=== PATIENT | male | born 1960 | race African-American/Black ===

== ENCOUNTER 2022-08-09 17:10 | Observation (INO) | payer BC, SELFPAY ==
[2022-08-09] VITALS (25 sets, daily range): BP systolic 146–169; BP diastolic 78–107; PULSE 69–87; RESP 14–29; TEMP 36.8; O2SAT 94–100; BMI 32.2
[2022-08-09] MEDS: EPINEPHrine HCL INJ 1 MG/ML AMPUL (17:20)
--- NOTE | 2022-08-09 17:25 | ED.ALLEREA ---
HPI - Allergic Reaction General Chief complaint: Allergic Reaction <Rosalva Crowell PA-C - Last Filed: 08/10/22 03:55> Stated complaint: allergic reaction <oRsalva Crowell PA-C - Last Filed: 08/10/22 03:55> Time Seen by Provider: 08/09/22 17:22 <Rosalva Crowell PA-C - Last Filed: 08/10/22 03:55> History of Present Illness HPI narrative: 62-year-old male with a history of diabetes, hypertension, kidney disease and prostate cancer reports for evaluation of an allergic reaction that started approximately 3 and half hours ago while he was eating a steak and vegetable kebab and fries at [facility]. Patient reported his eyes began to swell fairly quickly while he was eating, he took 1 Benadryl with improvement. States later he began to feel the swelling was worsening again took a second Benadryl without relief, therefore come to the ED. He is reporting swelling to his eyes and back of his throat. He denies difficulty breathing, wheezing, nausea or vomiting, abdominal pain, hives, pruritus. His only known allergy is to Percocet. He has never had an allergic reaction like this before. <Rosalva Crowell PA-C - Last Filed: 08/10/22 03:55> Related Data Home medications: Home Medications Medication Instructions Recorded Confirmed aspirin 81 mg tablet,delayed 81 mg PO DAILY 08/09/22 08/09/22 release coQ10 (ubiquinol) 100 mg capsule 100 mg PO DAILY 08/09/22 08/09/22 coffee extract 100 mg-phosphatidyl 1 cap PO DAILY 08/09/22 08/09/22 serine 100 mg capsule (Neuriva Original) gabapentin 100 mg capsule 100 mg PO HS 08/09/22 08/09/22 green tea leaf extract 1 cap PO DAILY 08/09/22 08/09/22 losartan 100 mg tablet 100 mg PO DAILY 08/09/22 08/09/22 metformin 1,000 mg tablet 1,000 mg PO BID 08/09/22 08/09/22 oxybutynin chloride 10 mg 10 mg PO DAILY 08/09/22 08/09/22 tablet,extended release 24 hr pioglitazone 15 mg tablet 15 mg PO DAILY 08/09/22 08/09/22 pravastatin 40 mg tablet 40 mg PO HS 08/09/22 08/09/22 tadalafil 5 mg tablet 5 mg PO DAILY 08/09/22 08/09/22 <Rosalva Crowell PA-C - Last Filed: 08/10/22 03:55> Allergies/adverse reactions: Allergies Allergy/AdvReac Type Severity Reaction Status Date / Time acetaminophen [From Percocet] Allergy Unknown Verified 08/09/22 18:42 oxycodone [From Percocet] Allergy Unknown Verified 08/09/22 18:42 <Rosalva Crowell PA-C - Last Filed: 08/10/22 03:55> Review of Systems Review of Systems: CONSTITUTIONAL: Denies fever, chills EYES: Denies visual changes, redness, or discharge. ENT: Denies rhinorrhea, congestion, sore throat, or otalgia. CARDIOVASCULAR: Denies chest pain, palpitations, or edema. RESPIRATORY: Denies cough or dyspnea. GASTROINTESTINAL: Denies abdominal pain, nausea, vomiting, or diarrhea. GENITOURINARY: Denies dysuria or hematuria. SKIN: See HPI MUSCULOSKELETAL: Denies back pain, joint pain, or myalgia. NEUROLOGIC: Denies headache, numbness, dizziness, or weakness. PSYCHIATRIC: Denies anxiety or depression. <Rosalva Crowell PA-C - Last Filed: 08/10/22 03:55> REPLACED BY [facility] Past Medical History Medical History: Medical History (Updated 08/09/22 @ 22:53 by Jagruti Haynes DO) Chronic neck pain Essential hypertension Hyperlipidemia Iron deficiency anemia History of what sounds like hemochromatosis but developed iron deficiency anemia after her gastric bypass Normal capsule endoscopy of gastrointestinal tract Prostate cancer Type 2 diabetes mellitus <Rosalva Crowell PA-C - Last Filed: 08/10/22 03:55> Surgical History Surgical History: Surgical History (Updated 08/09/22 @ 22:56 by Jagruti Haynes DO) History of prostatectomy (~10/2021) History of repair of left rotator cuff (~2008) History of Eneida-en-Y gastric bypass (~2009) Hx laparoscopic cholecystectomy (~12/2021) Normal colonoscopy Normal esophagogastroduodenoscopy (EGD) Status post cervical spinal fusion Status post open reduction with i
[2022-08-09] MEDS: SODIUM CHLORIDE 0.9% IV 1,000 ML 999 ML IV CONT (17:30)
[2022-08-09] MEDS: methylPREDNISolone SOD SUCC 125 MG VIAL IV PUSH (17:30)
[2022-08-09] MEDS: diphenhydrAMINE HCl INJ 50 MG/ML VIAL 25 MG IV PUSH ×3 (17:30→23:24)
[2022-08-09] MEDS: FAMOTIDINE 20 MG/2 ML VIAL IV PUSH (17:31)
[2022-08-09 17:52] LABS: Basophils Percent Auto 0.3 % (0.2-1.2); Eosinophils Absolute Auto 0.1 K/mm3 (0-0.3); Hematocrit 47.7 % (42.0-52.0); Hemoglobin 15.6 g/dL (14.0-18.0); Immature Granulocyte Absolute 0.02 K/mm3 (0.00-0.031); Immature Granulocyte Percent A 0.3 % (0-0.5); Lymphocytes Absolute Auto 1.44 K/mm3 (0.9-3.2); Lymphocytes Percent Auto 20.7 % (18.3-44.2); Mean Corpuscular HGB Conc 32.7 g/dl (32-36); Mean Corpuscular Hemoglobin 30.2 pg (26-34); Mean Corpuscular Volume 92.3 fl (80-100); Mean Platelet Volume 10.9 fl (7.4-10.4); Monocytes Absolute Auto 0.5 K/mm3 (0.1-0.6); Monocytes Percent Auto 7.1 % (2.6-8.5); Neutrophils Absolute Auto 4.9 K/mm3 (1.3-6.7); Neutrophils Percent Auto 70.6 % (45.5-73.1); Platelet Count Result 176 k/mm3 (150-375); Red Blood Count 5.17 M/mm3 (4.6-6.20); Red Cell Distribution Width 14.1 % (11.5-14.5)
[2022-08-09 18:02] LABS: Alanine Aminotransferase 21 U/L (6-50); Albumin Level 4.2 g/dL (3.5-5.1); Alkaline Phosphatase 54 U/L (38-126); Anion Gap 8 mmol/L (8-16); Aspartate Amino Transferase 32 U/L (17-59); Bilirubin,Total 0.6 mg/dL (0.2-1.3); Blood Urea Nitrogen 16 mg/dL (9-20); Calcium 8.6 mg/dL (8.4-10.2); Carbon Dioxide 25 mmol/L (22-30); Chloride 104 mmol/L (98-107); Estimated CRCL calculation 87 ml/min; Estimated Glomerular Filt Rate > 60; Glucose 113 mg/dL (65-110); Potassium 4.2 mmol/L (3.4-5.0); Sodium 137 mmol/L (137-145)
[2022-08-09 19:05] LABS: Appearance Urine Clear (Clear); Bilirubin Urine Negative (Negative); Blood Urine Negative (Negative); Color Urine Yellow (Yellow); Glucose Urine UA Negative (Negative); Ketones Urine Negative (Negative); Leukocyte Esterase Ur Negative LEU/UL (Negative); Nitrate Urine Negative (Negative); Protein Urine Negative (Negative); Specific Grav Ur 1.005 (1.001-1.035); Urobilinogen Urine 0.2 mg/dL (<2.0)
[2022-08-09 19:07] LABS: Add Urine Microscopic? NO
[2022-08-09] MEDS: EPINEPHrine HCL INJ 1 MG/ML AMPUL 0.3 MG IM (19:53)
--- NOTE | 2022-08-09 19:58 | PM.IMHP ---
H&P: HPI History of Present Illness Date/Time: 08/09/22 19:58 Chief Complaint: eye swelling and throat swelling Narrative: 62-year-old male with a past medical history of essential hypertension and type 2 diabetes mellitus who presented to the ER with eyelid and throat swelling after eating. The patient reports that he is in town visiting family. He is from [place]. They went out to dinner at [facility] any had a salad and ranch dressing. He then started eating steak with some steak fries. He has had this meal previously at other branches of this restaurant chain without having an allergic reaction. He reports that he was several bites in to his steak and fries when he began having itching of his eyes and a sensation of fullness in the back of his throat. He reported that his throat was also itching. He noticed that it was becoming difficult for him to swallow. His sister at some Benadryl at the restaurant and gave him a a tablet. He thought initially that his symptoms got a little bit better. He quit eating his meal and returned to the hotel. However when he needed to take a 2nd dose of Benadryl proximally 2 hours later he decided to go to stay with family so that they could monitor him. When he got to the house and tried to lay down he noticed symptoms of airway obstruction. Any time he would lay down he felt as if he could not breathe. He mentions that he recently had a sleep study about 6 weeks ago but has not received the results. He reports that his physician is suspicious that he has obstructive sleep apnea. He reports that since his symptoms had not improved with the 2nd dose of Benadryl knee was having trouble lying down to sleep he decided come into the ER for evaluation. In the ER he received 125 mg of IV Solu-Medrol, 20 mg of IV Pepcid, and 25 mg of IV Benadryl. ER staff reported that the patient's symptoms had not really improved with this any still had uvula edema on exam. The patient reports that his symptoms subjectively have improved any does not think his eyes are swollen as they were previously. He is on losartan for essential hypertension and for kidney protection. 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 He was treated for 1 year with cyclosporin and his proteinuria resolved. He denies any recent changes in his medications. He states he had prostate surgery in October 2021 and was started on Cialis and oxybutynin at that time. He has not been on any recent antibiotics. He does not hopkins. He does have a cat and dog at home but they are on flea and tick prevention. He has not had any known tick exposures. The patient's blood pressures have been elevated since admission with systolic blood pressures in the 160s. The patient reports that his blood pressures at home are usually in the 130s. He checks his blood pressures weekly. He is on losartan for his blood pressures and has been for several years. He had been switched to losartan for kidney protective affect. He was previously on Norvasc. Review of Systems Review of Systems: 12 systems were reviewed with pertinent positives and negatives per HPI. Except as documented in the HPI, all other systems were reviewed and are negative. He reports that he used to give blood frequently as his hemoglobin was always elevated. However couple of years ago he developed iron deficiency anemia and underwent pill endoscopy, EGD and colonoscopy. It was determined the and iron deficiency anemia due to nutritional deficiencies following his weight loss surgery. He is on multivitamin and B12 supplements daily. [facility] Past Medical History Medical History (Updated 08/09/22 @ 22:53 by Jagruti Haynes DO) Chronic neck pain Essential hypertension Hyperlipidemia Iron deficiency anemia History of what sounds like hemochromatosis but developed iron deficiency anemia after
[2022-08-09 20:16] LABS: Glucose Point of Care 188 mg/dl (65-105)
--- NOTE | 2022-08-09 23:16 | PHAR ---
verified home med: *USE FROM HOME* Tadalafil 5 mg tablet - take 1 tablet by mouth daily
[2022-08-09] MEDS: GABAPENTIN 100 MG CAPSULE PO (23:22)
[2022-08-09] MEDS: methylPREDNISolone SOD SUCC 40 MG VIAL 80 MG IV PUSH (23:24)
[2022-08-10] VITALS (10 sets, daily range): BP systolic 119–161; BP diastolic 70–97; PULSE 49–85; RESP 12–18; TEMP 36.4–36.9; O2SAT 95–99
--- NOTE | 2022-08-10 00:08 | ADMGEN ---
This patient, Lucho Acharya, was admitted to Intensive Care Unit-1 at 2102 on 08/09/22. Patient/family oriented to hospital policies and general routines including ID bracelet, bed and alarms, visiting hours, pain management, procedures, bathroom and other care routines, personal items, smoking policy, room service/diet, and visiting hours. Information on how to activate the Rapid Response Team has been discussed. Patient/Family are encouraged to report perceived risks to care and to ask questions if they do not understand what they are told or what they should do.
[2022-08-10] MEDS: diphenhydrAMINE HCl INJ 50 MG/ML VIAL 25 MG IV PUSH ×4 (06:22→23:44)
[2022-08-10] MEDS: methylPREDNISolone SOD SUCC 40 MG VIAL 80 MG IV PUSH ×4 (06:22→23:43)
[2022-08-10 07:55] LABS: Glucose Point of Care 213 mg/dl (65-105)
--- NOTE | 2022-08-10 08:27 | WPDCNINT ---
Assessment and Plan Assessment and plan (1) Angioedema: Qualifiers: Encounter type: initial encounter Qualified Code(s): T78.3XXA - Angioneurotic edema, initial encounter Code(s): T78.3XXA - Angioneurotic edema, initial encounter Status: Acute Assessment and Plan: Patient presented the ED after having been at [facility], he has had similar food and other out lids without any allergic reaction. He had salad with ranch dressing and steak with some steak [place] and then developed fullness in his throat along with itching, swelling of his eyes. He did take some Benadryl at the restaurant. Went home and felt he could not breathe and so he presented the ED at [facility] where he was given epinephrine, Solu-Medrol, Pepcid, Benadryl -continue Solu-Medrol, Pepcid, Benadryl -patient denies any difficulty swallowing, difficulty breathing, he is not drooling -continue to monitor closely (2) Essential hypertension: Code(s): I10 - Essential (primary) hypertension Status: Acute Assessment and Plan: Patient on losartan at home, this could also be a factor playing in his angioedema which I explained to him in detail -place patient on amlodipine with blood pressure control -he is on hydralazine p.r.n. (3) Type 2 diabetes mellitus: Code(s): E11.9 - Type 2 diabetes mellitus without complications Status: Acute Assessment and Plan: Continue metformin and Actos -Accu-Cheks and sliding scale insulin Plan DVT prophylaxis: Lovenox Stress ulcer prophylaxis: Pepcid Nutrition: Full liquid diet Code Status: Full Critical Care Time Spent: 47 minutes Due to a high probability of clinically significant, life threatening deterioration, the patient required my highest level of preparedness to intervene emergently and I personally spent this critical care time directly and personally managing the patient. This critical care time included obtaining a history; examining the patient; pulse oximetry; ordering and review of studies; arranging urgent treatment with development of a management plan; evaluation of patient's response to treatment; frequent reassessment; and discussions with other providers. It was exclusive of separately billable procedures and treating other patients and teaching time. Please see Assessment and Plan section and the rest of the note for further information on patient assessment and treatment This dictation may have been done utilizing a voice recognition system. Attempts have been made to correct errors. However, there may be uncorrected grammatical, spelling, and recognitions errors present. Packaging Manager Consult Note Consult date: 08/10/22 Reason for consult: Angioedema HPI: Lucho Acharya is a 62 year old male continues to type 2 diabetes, essential hypertension, hyperlipidemia, deficiency anemia, history of prostate cancer presented the ED with swelling of his eyelids in throat after eating at [employer] we insulin silent in REM dressing along with some steak AST [place] urine immediately noted managing to his eyes and sensation of fullness in the back of his throat. He has had similar meals at [employer] outlets without any issues in the past. He also noted that he was having difficulty swallowing, he took Benadryl x2 at the restaurant. Patient then went home and felt that he was having trouble breathing so he came to the ER where he was given epinephrine, Solu-Medrol, Pepcid, Benadryl. Patient had swelling of his eyes and uvula was admitted to the ICU for observation Patient seen and examined the ICU, is awake, alert, oriented, states he feels better this morning, denies any shortness of breath, difficulty swallowing or drooling. He states he feels that the swelling of his eyes is decreased. Pleasant patient, was wondering about his losartan was blood pressures. I told him that we will given something else for his blood pressures as losartan also c
[2022-08-10] MEDS: INSULIN ASPART (*BKC) 100 UNITS/ML SUB-Q ×2 (08:41→13:04)
[2022-08-10] MEDS: ENOXAPARIN 40 MG/0.4 ML SYRINGE SUB-Q (08:42)
[2022-08-10] MEDS: ASPIRIN 81 MG ENTERIC TABLET PO (08:42)
[2022-08-10] MEDS: oxyBUTYnin CHLORIDE XL 5 MG TAB.ER.24 10 MG PO (08:42)
[2022-08-10] MEDS: PIOGLITAZONE HCL 15 MG TAB PO (08:43)
[2022-08-10] MEDS: FAMOTIDINE 20 MG/2 ML VIAL IV PUSH ×2 (08:43→19:58)
[2022-08-10] MEDS: metFORMIN HCL 500 MG TABLET 1000 MG PO ×2 (08:43→18:00)
[2022-08-10] MEDS: amLODIPine BESYLATE 5 MG TABLET 10 MG PO (10:20)
--- NOTE | 2022-08-10 10:24 | P.PNIM_ITS ---
Progress Note: A&P Assessment and Plan (1) Angioedema: Qualifiers: Encounter type: initial encounter Qualified Code(s): T78.3XXA - Angioneurotic edema, initial encounter Code(s): T78.3XXA - Angioneurotic edema, initial encounter Status: Acute Plan # angioedema -unclear the trigger for the patient's allergic reaction -was concern for losartan allergy, stop for now -continue Solu-Medrol, Benadryl, Pepcid -advancing diet as tolerated # chronic conditions -essential hypertension: Stop losartan, started amlodipine, systolic blood pressure up to 160s, continue monitoring blood pressure -type 2 diabetes: Sliding scale insulin, Accu-Cheks a.c. HS, metformin, Actos -peripheral neuropathy: Gabapentin -hyperlipidemia: Atorvastatin -tadalafil Diet: Tolerate clear liquids, advanced to diabetic diet DVT prophylaxis: Ambulatory Code status: Full code Disposition: Likely home tomorrow, transfer out of ICU Subjective Date/time seen: 08/10/22 10:24 Interval history: Patient seen and examined. He is doing well with no new complaints. Patient's swelling has significantly decreased compared to yesterday. Continue Solu- Medrol, Pepcid, Benadryl. Patient's vitals are stable. He has tolerated clear liquid diet, will advance to regular diet. As we have stopped losartan, started amlodipine with systolic blood pressure up to 160s. Will transition out of ICU and monitor on medical floor. He denies dyspnea, fever, chills, nausea vomiting or diarrhea. Review of Systems Review of Systems: 10 point ROS complete, negative other th an what is specified in HPI. Exam Narrative: - GENERAL: Pleasant male No acute distr ess. Well-nourished. - EYES: EOMI. Anicteric. - HENT: Moist mucous membranes. No faci al swelling seen compared to picture from yesterday - LUNGS: Clear to auscultation bilateral ly, no wheezing, rhonchi, or rales. - CARDIOVASCULAR: Regular rate and rhyth m. No murmur. No JVD. - ABDOMEN: Soft, non-tender and non-dist ended. No palpable masses. - EXTREMITIES: No edema. Peripheral puls es 2+. Non-tender. - NEUROLOGIC: No focal neurological defi cits. CN II-XII grossly intact. - PSYCHIATRIC: Awake, Alert and oriented x 3. Appropriate mood and affect. - SKIN: No rashes or lesions. Warm. - LYMPH: No cervical lymphadenopathy. Objective Data Vital Signs Vital Signs: Vital Signs - 24 hr 08/09/22 17:21 08/09/22 19:50 08/09/22 18:17 Temperature 36.8 C Pulse Rate 70 85 69 Respiratory Rate 16 20 19 Blood Pressure 168/107 H 156/104 H Pulse Oximetry 98 96 96 Oxygen Delivery Room Air 08/09/22 18:18 08/09/22 18:30 08/09/22 18:31 Temperature Pulse Rate 76 76 73 Respiratory Rate 22 H 14 15 Blood Pressure 149/78 H 146/78 H Pulse Oximetry 98 97 98 Oxygen Delivery 08/09/22 18:48 08/09/22 19:00 08/09/22 19:01
--- NOTE | 2022-08-10 10:24 | PM.IMPN ---
Progress Note: A&P Assessment and Plan (1) Angioedema: Qualifiers: Encounter type: initial encounter Qualified Code(s): T78.3XXA - Angioneurotic edema, initial encounter Code(s): T78.3XXA - Angioneurotic edema, initial encounter Status: Acute Plan # angioedema -unclear the trigger for the patient's allergic reaction -was concern for losartan allergy, stop for now -continue Solu-Medrol, Benadryl, Pepcid -advancing diet as tolerated # chronic conditions -essential hypertension: Stop losartan, started amlodipine, systolic blood pressure up to 160s, continue monitoring blood pressure -type 2 diabetes: Sliding scale insulin, Accu-Cheks a.c. HS, metformin, Actos -peripheral neuropathy: Gabapentin -hyperlipidemia: Atorvastatin -tadalafil Diet: Tolerate clear liquids, advanced to diabetic diet DVT prophylaxis: Ambulatory Code status: Full code Disposition: Likely home tomorrow, transfer out of ICU Subjective Date/time seen: 08/10/22 10:24 Interval history: Patient seen and examined. He is doing well with no new complaints. Patient's swelling has significantly decreased compared to yesterday. Continue Solu-Medrol, Pepcid, Benadryl. Patient's vitals are stable. He has tolerated clear liquid diet, will advance to regular diet. As we have stopped losartan, started amlodipine with systolic blood pressure up to 160s. Will transition out of ICU and monitor on medical floor. He denies dyspnea, fever, chills, nausea vomiting or diarrhea. Review of Systems Review of Systems: 10 point ROS complete, negative other than what is specified in HPI. Exam Narrative: - GENERAL: Pleasant male No acute distress. Well-nourished. - EYES: EOMI. Anicteric. - HENT: Moist mucous membranes. No facial swelling seen compared to picture from yesterday - LUNGS: Clear to auscultation bilaterally, no wheezing, rhonchi, or rales. - CARDIOVASCULAR: Regular rate and rhythm. No murmur. No JVD. - ABDOMEN: Soft, non-tender and non-distended. No palpable masses. - EXTREMITIES: No edema. Peripheral pulses 2+. Non-tender. - NEUROLOGIC: No focal neurological deficits. CN II-XII grossly intact. - PSYCHIATRIC: Awake, Alert and oriented x 3. Appropriate mood and affect. - SKIN: No rashes or lesions. Warm. - LYMPH: No cervical lymphadenopathy. Objective Data Vital Signs Vital Signs: Vital Signs - 24 hr 08/09/22 17:21 08/09/22 19:50 08/09/22 18:17 Temperature 36.8 C Pulse Rate 70 85 69 Respiratory Rate 16 20 19 Blood Pressure 168/107 H 156/104 H Pulse Oximetry 98 96 96 Oxygen Delivery Room Air 08/09/22 18:18 08/09/22 18:30 08/09/22 18:31 Temperature Pulse Rate 76 76 73 Respiratory Rate 22 H 14 15 Blood Pressure 149/78 H 146/78 H Pulse Oximetry 98 97 98 Oxygen Delivery 08/09/22 18:48 08/09/22 19:00 08/09/22 19:01 Temperature Pulse Rate 77 75 79 Respiratory Rate 17 15 17 Blood Pressure 146/91 H Pulse Oximetry 96 95 Oxygen Delivery 08/09/22 19:15 08/09/22 19:16 08/09/22 19:30 Temperature Pulse Rate 80 81 76 Respiratory Rate 17 17 16 Blood Pressure 162/92 H Pulse Oximetry 97 95 94 Oxygen Delivery 08/09/22 19:31 08/09/22 19:45 08/09/22 19:46 Temperature Pulse Rate 74 81 83 Respiratory Rate 15 19 23 H Blood Pressure 153/90 H 156/104 H Pulse Oximetry 95 96 97 Oxygen Delivery 08/09/22 19:48 08/09/22 20:09 08/09/22 20:16 Temperature Pulse Rate 82 76 85 Respiratory Rate 18 20 19 Blood Pressure 160/96 H Pulse Oximetry 97 98 95 Oxygen Delivery 08/09/22 20:22 08/09/22 20:30 08/09/22 20:31 Temperature Pulse Rate 80 84 Respiratory Rate 29 H 21 H 18 Blood Pressure 167/84 H Pulse Oximetry 100 95 96 Oxygen Delivery 08/09/22 20:45 08/09/22 20:46 08/09/22 22:00 Temperature Pulse Rate 87 83 82 Respiratory Rate 21 H 19 Blood Pressure 169/83 H Pulse Oximetry 94 96 Oxygen Delivery 08/09/22 21:05 08/09/22 22:00
[2022-08-10 13:17] LABS: Glucose Point of Care 288 mg/dl (65-105)
--- NOTE | 2022-08-10 13:23 | PC.NURSE ---
Report given to JUNI Pagan with [address] [place] [address] at 1310. All questions answered and plan of care reviewed. Patient to go to [address] [place] [address] room 250.
[2022-08-10 17:29] LABS: Glucose Point of Care 165 mg/dl (65-105)
--- NOTE | 2022-08-10 19:07 | ADMGEN ---
This patient, Lucho Acharya, was admitted to Medical Room 250-01. Patient/family oriented to hospital policies and general routines including ID bracelet, bed and alarms, visiting hours, pain management, procedures, bathroom and other care routines, personal items, smoking policy, room service/diet, and visiting hours. Information on how to activate the Rapid Response Team has been discussed. Patient/Family are encouraged to report perceived risks to care and to ask questions if they do not understand what they are told or what they should do.
[2022-08-10] MEDS: PRAVASTATIN SODIUM 20 MG TABLET 40 MG PO (19:59)
[2022-08-10] MEDS: GABAPENTIN 100 MG CAPSULE PO (19:59)
[2022-08-10 20:42] LABS: Glucose Point of Care 304 mg/dl (65-105)
[2022-08-11] MEDS: methylPREDNISolone SOD SUCC 40 MG VIAL 80 MG IV PUSH (05:14)
[2022-08-11] MEDS: diphenhydrAMINE HCl INJ 50 MG/ML VIAL 25 MG IV PUSH (05:14)
[2022-08-11 06:01] LABS: Hematocrit 45.7 % (42.0-52.0); Hemoglobin 15.4 g/dL (14.0-18.0); Mean Corpuscular HGB Conc 33.7 g/dl (32-36); Mean Corpuscular Hemoglobin 30.8 pg (26-34); Mean Corpuscular Volume 91.4 fl (80-100); Mean Platelet Volume 10.8 fl (7.4-10.4); Platelet Count Result 172 k/mm3 (150-375); Red Cell Distribution Width 14.1 % (11.5-14.5); White Blood Count 20.4 K/mm3 (4.5-10.0)
[2022-08-11 06:12] VITALS: BP 134/72; PULSE 65; RESP 16; TEMP 36.6; O2SAT 94
[2022-08-11 06:15] LABS: Anion Gap 5 mmol/L (8-16); Blood Urea Nitrogen 20 mg/dL (9-20); Calcium 8.7 mg/dL (8.4-10.2); Carbon Dioxide 28 mmol/L (22-30); Chloride 103 mmol/L (98-107); Estimated CRCL calculation 79 ml/min; Estimated Glomerular Filt Rate > 60; Glucose 205 mg/dL (65-110); Magnesium 1.6 mg/dL (1.6-2.3); Potassium 4.3 mmol/L (3.4-5.0); Sodium 136 mmol/L (137-145)
[2022-08-11 08:21] LABS: Glucose Point of Care 224 mg/dl (65-105)
[2022-08-11] MEDS: oxyBUTYnin CHLORIDE XL 5 MG TAB.ER.24 10 MG PO (08:30)
[2022-08-11] MEDS: metFORMIN HCL 500 MG TABLET 1000 MG PO (08:30)
[2022-08-11] MEDS: PIOGLITAZONE HCL 15 MG TAB PO (08:30)
[2022-08-11] MEDS: ENOXAPARIN 40 MG/0.4 ML SYRINGE SUB-Q (08:30)
[2022-08-11] MEDS: INSULIN ASPART (*BKC) 100 UNITS/ML SUB-Q ×2 (08:30→12:28)
[2022-08-11] MEDS: ASPIRIN 81 MG ENTERIC TABLET PO (08:30)
[2022-08-11 08:35] VITALS: BP 154/68; PULSE 68; RESP 14; O2SAT 98
[2022-08-11] MEDS: FAMOTIDINE 20 MG/2 ML VIAL IV PUSH (08:35)
[2022-08-11] MEDS: amLODIPine BESYLATE 5 MG TABLET 10 MG PO (11:12)
[2022-08-11 12:16] LABS: Glucose Point of Care 258 mg/dl (65-105)
--- NOTE | 2022-08-11 12:19 | PM.DS ---
DS: Admitting Diagnosis Discharge Date 08/11/22 Admitting Diagnosis Angioedema DS: Discharge Diagnosis Discharge Diagnosis (1) Angioedema: Qualifiers: Encounter type: initial encounter Qualified Code(s): T78.3XXA - Angioneurotic edema, initial encounter Code(s): T78.3XXA - Angioneurotic edema, initial encounter Status: Acute (2) Allergic reaction: Qualifiers: Encounter type: initial encounter Qualified Code(s): T78.40XA - Allergy, unspecified, initial encounter Code(s): T78.40XA - Allergy, unspecified, initial encounter Status: Acute Plan # angioedema -unclear the trigger for the patient's allergic reaction, symptoms resolved -was concern for losartan allergy, stop for now -continue Solu-Medrol, Benadryl, Pepcid -advancing diet as tolerated -Rx: will give 5 day prednisone 20mg, continue pepcid 20mg BID, as needed benadryl, as needed epi-pen # chronic conditions -essential hypertension:? Stop losartan, started amlodipine, systolic blood pressure up to 160s, continue monitoring blood pressure and follow up with PCP in 1 week -type 2 diabetes: Sliding scale insulin, Accu-Cheks a.c. HS, metformin, Actos -peripheral neuropathy: Gabapentin -hyperlipidemia: Atorvastatin -tadalafil Diet:?diabetic diet Code status:? Full code Disposition: Home DS: Summary Hospital Course Reason for hospitalization: angioedema, face and throat swelling Hospital Course: Patient is a 62-year-old male past medical history of type 2 diabetes, essential hypertension who presents to ED on 08/09/22 with chief complaint of throat swelling and right face eyelid swelling. patient has not had allergic reactions in the past. He was eating at [employer]. He had salad with ranch dressing, steak, steak fries and during this had an allergic reaction. He has had this meal before without allergic reaction. There is no recent medication changes. He had taken a Benadryl prior to coming to the hospital. It is unclear what has caused his allergic reaction. He was treated with Benadryl, Solu-Medrol, Pepcid. is moderate in ICU and with the treatment plan his symptoms resolved rapidly. he was monitored from 08/09/2022-08/11/2022. He has been doing significantly better, tolerating a p.o. intake, facial swelling has decreased. He will be sent home with 5 more days of prednisone low dose at 20 mg, Pepcid 20 mg b.i.d., as needed EpiPen, as needed Benadryl. There was some concern that his allergic reaction angioedema may have been secondary to ARB so his losartan was stopped and he was started back on Norvasc. Patient will keep a blood pressure log and follow-up with PCP in 1 week. At time of discharge patient's vitals stable, labs stable, patient is stable for discharge home. Patient understands and agrees with plan. Status at Discharge Cognitive/behavioral status at discharge: at baseline Time Spent with Patient Time attestation: Total time spent providing and/or coordinating discharge services: 35 min Exam Narrative: - GENERAL: Pleasant male in no acute distress. Well-nourished. - EYES: EOMI. Anicteric. - HENT: Moist mucous membranes. patient's swelling has completely resolved - LUNGS: Clear to auscultation bilaterally, no wheezing, rhonchi, or rales. - CARDIOVASCULAR: Regular rate and rhythm. No murmur. No JVD. - ABDOMEN: Soft, non-tender and non-distended. No palpable masses. - EXTREMITIES: No edema. Peripheral pulses 2+. Non-tender. - NEUROLOGIC: No focal neurological deficits. CN II-XII grossly intact. - PSYCHIATRIC: Awake, Alert and oriented x 3. Appropriate mood and affect. - SKIN: No rashes or lesions. Warm. - LYMPH: No cervical lymphadenopathy. DS: Data Data Completed and Pending Labs on day of discharge: Labs from last 24 hours 08/11/22 08/11/22 08/11/22 12:02 08:18 05:42 WBC 20.4 H RBC 5.00 Hgb 15.4 Hct 45.7 MCV 91.4 MCH 30.8 MCHC 33.7 RDW 14.1 Plt Count
== END 2022-08-11 13:30 | disposition home or self-care (01) ==
LOC: ANHED 19:50 → ANHICU 08-10 00:13 → ANH2MED 08-11 12:04 → ANHICU 08-13 09:53
PROVIDERS: Admitting Provider Internal Medicine; Emergency Provider Physician Assistant; Visit Provider Student in an Organized Health Care Education/Training Program
DX: T78.3XXA Angioneurotic edema, initial encounter (principal); T78.40XA Allergy, unspecified, initial encounter; E11.9 Type 2 diabetes mellitus without complications; I10 Essential (primary) hypertension; G89.29 Other chronic pain; M54.2 Cervicalgia; D50.9 Iron deficiency anemia, unspecified; E78.5 Hyperlipidemia, unspecified; Z98.84 Bariatric surgery status; F10.90 Alcohol use, unspecified, uncomplicated; Z85.46 Personal history of malignant neoplasm of prostate; Z83.3 Family history of diabetes mellitus; Z82.49 Family history of ischemic heart disease and other diseases of the circulatory system; Z79.82 Long term (current) use of aspirin; Z79.84 Long term (current) use of oral hypoglycemic drugs; Z79.899 Other long term (current) drug therapy
CPT/HCPCS: 36415; 80048; 80053; 81003; 82948; 83735; 85025; 85027; 96361; 96372; 96374; 96375; 96376; 99285; A9270; G0378; J0171; J1200; J1650; J1815; J2920; J2930; J7030